=== PATIENT | female | born 1950 ===

== ENCOUNTER 2019-02-06 15:26 | Emergency (ER) | payer OTHER, MEDICARE ==
--- NOTE | 2019-02-06 16:14 | UC ---
Skin Complaint HPI - HPI Summary HPI Summary: Pt presents with c/o tick bite to left side of cheek that she believes she got today and removed this morning at home. Pt is concerned that there is still some tick imbedded in cheek. - History of Current Complaint Chief Complaint: [facility] Time Seen by Provider: 02/06/19 15:57 Stated Complaint: TICK BITE Hx Obtained From: Patient ?: No Onset/Duration: Sudden Onset, Resolved Skin Exposure Onset/Duration: Hours Ago Timing: Constant Onset Severity: Mild Current Severity: Mild Pain Intensity: 0 Location: Face Character: Redness, Raised - slight swelling, pt states that daughter at home attempted to remove remiaing piece of tick with pin/needle Aggravating Factor(s): Touch Alleviating Factor(s): Unknown Associated Signs & Symptoms: Positive: Tenderness Related History: Insect Bite/Sting - Allergy/Home Medications Allergies/Adverse Reactions: Allergies Allergy/AdvReac Type Severity Reaction Status Date / Time No Known Allergies Allergy Verified 02/06/19 16:03 Home Medications: Home Medications Atorvastatin* [Lipitor 40 MG*] 40 mg PO DAILY 02/06/19 [History Confirmed ] Omeprazole 40 mg PO DAILY 02/06/19 [History Confirmed 02/06/19] Pyridoxine TAB* [Vitamin B6 TAB*] 50 mg PO DAILY 02/06/19 [History Confirmed ] levETIRAcetam TAB* [Keppra TAB*] 500 mg PO BID 02/06/19 [History Confirmed 02/06] PMH/Surg Hx/FS Hx/Imm Hx Previously Healthy: Yes Endocrine History: Dyslipidemia - Surgical History Surgical History: Yes Surgery Procedure, Year, and Place: left hand surgery, tubal ligation,right wrist surgery,. choley - Family History Known Family History: Positive: Cardiac Disease - Social History Occupation: Retired Lives: Alone Alcohol Use: None Substance Use Type: None Smoking Status (MU): Never Smoked Tobacco Have You Smoked in the Last Year: No Review of Systems All Other Systems Reviewed And Are Negative: Yes Constitutional: Positive: Negative Skin: Positive: Other - mild erythema, tiny black center with presumably tiny piece of tick still imbedded in skin Eyes: Positive: Negative ENT: Positive: Negative Respiratory: Positive: Negative Cardiovascular: Positive: Negative Gastrointestinal: Positive: Negative Genitourinary: Positive: Negative Motor: Positive: Negative Neurovascular: Positive: Negative Musculoskeletal: Positive: Negative Neurological: Positive: Negative Psychological: Positive: Negative Is Patient Immunocompromised?: No Physical Exam Triage Information Reviewed: Yes Appearance: Well-Appearing Vital Signs: Initial Vital Signs Temp 98.9 F 02/06/19 15:58 Pulse 73 02/06/19 15:58 Resp 18 02/06/19 15:58 BP 128/58 02/06/19 15:58 Pulse Ox 97 02/06/19 15:58 Vital Signs Reviewed: Yes Eye Exam: Normal ENT: Positive: Hearing grossly normal Neck exam: Normal Neck: Positive: Supple, Nontender Respiratory: Positive: No respiratory distress Musculoskeletal Exam: Normal Neurological Exam: Normal Psychological Exam: Normal Skin Exam: Other - small circular mildly erythematous area left side cheek near mandible angle, tiny black colored center. possibly piece of tick still imbedded Course/Dx - Differential Diagnoses - Skin Complaint Differential Diagnoses: Cellulitis, Tick Born Illness - Diagnoses Provider Diagnosis: Insect bite Discharge ED - Sign-Out/Discharge Documenting (check all that apply): Patient Departure All imaging exams completed and their final reports reviewed: No Studies - Discharge Plan Condition: Stable Disposition: HOME Prescriptions: DOXYcycline CAP(*) [DOXYcycline 100MG CAP(*)] 200 mg PO DAILY #2 cap Patient Education Materials: Insect Bite or Sting (ED) Referrals: Rick Verdugo MD [Primary Care Provider] - If Needed - Billing Disposition and Condition Condition: STABLE Disposition: Home
== END 2019-02-06 16:24 | disposition home or self-care (01) ==
LOC: UCCORT 15:26
DX: S00.86XA Insect bite (nonvenomous) of other part of head, initial encounter (principal); L03.211 Cellulitis of face; E78.5 Hyperlipidemia, unspecified; W57.XXXA Bitten or stung by nonvenomous insect and other nonvenomous arthropods, initial encounter; Y92.9 Unspecified place or not applicable
CPT/HCPCS: 99202; G0463